=== PATIENT | male | born 1940 | race Caucasian/White ===

== ENCOUNTER 2018-09-29 12:53 | Inpatient (IN) | payer MEDICARE ==
[2018-09-29] MEDS ORDERED: FUROSEMIDE 100 MG SOL IV ONE (13:52)
[2018-09-29 14:06] LABS: HEMATOCRIT 40 % (39-53); HEMOGLOBIN 13.9 gm/dl (13.5-17.7); MEAN CORPUSCULAR HGB CONC 34.6 gm/dl (32.0-36.0); MEAN CORPUSCULAR VOLUME 93 fL (80-100)
[2018-09-29 14:11] LABS: ALBUMIN 1.9 gm/dl (3.4-5.0); BILIRUBIN,TOTAL 1.6 mg/dl (0.2-1.0); CALCIUM 7.5 mg/dl (8.5-10.1); CARBON DIOXIDE 22.8 mEq/L (21-32); CREATININE 0.94 mg/dl (0.80-1.30); TOTAL PROTEIN 6.8 gm/dl (6.4-8.2)
[2018-09-29 14:28] LABS: BAND NEUTROPHILS % (MANUAL) 1 %; BASOPHILS % (MANUAL) 0 % (0-3); EOSINOPHILS % (MANUAL) 1 % (0-9); NEUTROPHILS % (MANUAL) 56 % (37-80)
[2018-09-29 14:30] LABS: LYMPHOCYTES % (MANUAL) 35 % (10-50); MONOCYTES % (MANUAL) 7 % (0-12); NORMAL RBCS NORMAL; PLATELET MORPHOLOGY COMMENT DECREASED
[2018-09-29 14:57] LABS: INR 1.5 (0.86-1.12)
[2018-09-29] MEDS ORDERED: FUROSEMIDE 40 MG SOL ONE (15:15)
[2018-09-29 15:20] LABS: APPEARANCE,URINE Clear; BILIRUBIN,URINE NEGATIVE (NEGATIVE); COLOR,URINE Yellow; GLUCOSE, URINE (UA) NEGATIVE (NEGATIVE); KETONES,URINE NEGATIVE (NEGATIVE); LEUKOCYTE ESTERASE ,URINE NEGATIVE (NEGATIVE); NITRATE,URINE NEGATIVE (NEGATIVE); OCCULT BLOOD,URINE NEGATIVE (NEG-TRACE); UROBILINOGEN,URINE 0.2 (0.2-1.0 EU)
[2018-09-29 15:54] LABS: BACTERIA RARE (< 1+); CRYSTALS NEGATIVE (0-3 AVE/HPF); EPITHELIAL CELLS 0-1 (SQUAMOUS); RBC,URINE NEG (0-3AV/HPF); WBC,URINE NEG (0-5AV/HPF)
[2018-09-29] MEDS ORDERED: ALBUMIN HUMAN 100 ML IV ONE ×2 (17:13→17:54)
[2018-09-29] MEDS: SODIUM CHLORIDE 0.9% FLUSH 10 ML SOL IV SCH ×2 (17:22→21:36)
[2018-09-29] MEDS: ALBUMIN HUMAN 25 GM/100 ML SOL IV ONE ×3 (17:23→19:34)
[2018-09-29 18:24] LABS: PERITON FL APPEAR/VOLUME CLEAR YELLOW; PERITONEAL FLUID PMNS 1 %
[2018-09-29 18:25] LABS: PERITONEAL FLUID MONO'S 67 %
[2018-09-29 18:26] LABS: PERITONEAL FL GLUCOSE 116 mg/dl; PERITONEAL FLUID PH 8.5
[2018-09-29] MEDS: NOVOLOG FLEXPEN SC SCH ×2 (21:10→23:43)
[2018-09-29] MEDS: LISINOPRIL 5 MG TAB PO SCH (21:36)
[2018-09-29] MEDS: METOPROLOL TARTRATE 25 MG TAB PO SCH (21:36)
[2018-09-29] MEDS: ENOXAPARIN 40 MG SOL SC SCH (21:36)
[2018-09-30 07:18] LABS: ALBUMIN 2.2 gm/dl (3.4-5.0); BILIRUBIN,TOTAL 1.6 mg/dl (0.2-1.0); CALCIUM 7.4 mg/dl (8.5-10.1); CARBON DIOXIDE 23.6 mEq/L (21-32); CREATININE 0.86 mg/dl (0.80-1.30); TOTAL PROTEIN 5.8 gm/dl (6.4-8.2)
[2018-09-30 07:34] LABS: BASOPHILS % (AUTO) 1 % (0-3); EOSINOPHILS % (AUTO) 1 % (0-9); HEMATOCRIT 36 % (39-53); HEMOGLOBIN 12.3 gm/dl (13.5-17.7); LYMPHOCYTES % (AUTO) 29.2 % (10-50); MEAN CORPUSCULAR HEMOGLOBIN 31.9 pg (27.0-32.0); MEAN CORPUSCULAR HGB CONC 34.5 gm/dl (32.0-36.0); MEAN CORPUSCULAR VOLUME 93 fL (80-100); NEUTROPHILS % (AUTO) 63.2 % (37-80)
[2018-09-30 07:35] LABS: INR 1.74 (0.86-1.12)
[2018-09-30 07:43] LABS: PERTIONEAL FL RBC 2073 /mm3
[2018-09-30 07:46] LABS: PERITONEAL FL WBCS 128 /mm3
[2018-09-30] MEDS: NOVOLOG FLEXPEN SC SCH ×4 (08:22→20:52)
[2018-09-30] MEDS: ENOXAPARIN 40 MG SOL SC SCH (09:08)
[2018-09-30] MEDS: ATORVASTATIN 10 MG TAB PO SCH (09:15)
[2018-09-30] MEDS: ASPIRIN 81 MG CHEWABLE CTB PO SCH (09:15)
[2018-09-30] MEDS: SODIUM CHLORIDE 0.9% FLUSH 10 ML SOL IV SCH ×3 (09:15→21:38)
[2018-09-30] MEDS: TAMSULOSIN HYDROCHLORIDE 0.4 MG CAP PO SCH (09:15)
[2018-09-30] MEDS: METOPROLOL TARTRATE 25 MG TAB PO SCH ×2 (09:16→20:56)
[2018-09-30] MEDS: LISINOPRIL 5 MG TAB PO SCH (20:56)
[2018-10-01] MEDS: SODIUM CHLORIDE 0.9% FLUSH 10 ML SOL IV SCH ×3 (05:15→21:42)
[2018-10-01 08:31] LABS: BASOPHILS % (AUTO) 2 % (0-3); EOSINOPHILS % (AUTO) 2 % (0-9); HEMATOCRIT 38 % (39-53); HEMOGLOBIN 12.8 gm/dl (13.5-17.7); LYMPHOCYTES % (AUTO) 48.2 % (10-50); MEAN CORPUSCULAR HEMOGLOBIN 31.6 pg (27.0-32.0); MEAN CORPUSCULAR VOLUME 93 fL (80-100); MONOCYTES % (AUTO) 7.3 % (0-12); NEUTROPHILS % (AUTO) 41.4 % (37-80)
[2018-10-01 08:45] LABS: BILIRUBIN,TOTAL 1.7 mg/dl (0.2-1.0); CALCIUM 7.6 mg/dl (8.5-10.1); CREATININE 0.76 mg/dl (0.80-1.30); TOTAL PROTEIN 5.8 gm/dl (6.4-8.2)
[2018-10-01 08:52] LABS: CARBON DIOXIDE 26.3 mEq/L (21-32)
[2018-10-01] MEDS ORDERED: FUROSEMIDE 80 MG TAB PO SCH (09:00)
[2018-10-01] MEDS ORDERED: SPIRONOLACTONE 25 MG TAB PO SCH (09:00)
[2018-10-01] MEDS: FUROSEMIDE 40 MG SOL IV SCH ×2 (10:07→13:55)
[2018-10-01] MEDS: SODIUM CHLORIDE 0.9% FLUSH 10 ML SOL IV PRN (10:08)
[2018-10-01] MEDS: NOVOLOG FLEXPEN SC SCH ×4 (10:14→20:46)
[2018-10-01] MEDS: ENOXAPARIN 40 MG SOL SC SCH (10:14)
[2018-10-01] MEDS: ATORVASTATIN 10 MG TAB PO SCH (10:16)
[2018-10-01] MEDS: TAMSULOSIN HYDROCHLORIDE 0.4 MG CAP PO SCH (10:17)
[2018-10-01] MEDS: ASPIRIN 81 MG CHEWABLE CTB PO SCH (10:18)
[2018-10-01] MEDS: METOPROLOL TARTRATE 25 MG TAB PO SCH ×2 (10:18→20:50)
[2018-10-01] MEDS ORDERED: APAP/HYDROCODONE 1 EACH TABLET PO PRN (20:45)
[2018-10-01] MEDS ORDERED: ACETAMINOPHEN 500 MG 500 MG TAB PO PRN (20:45)
[2018-10-01] MEDS ORDERED: FUROSEMIDE 40 MG SOL IV ONE (20:46)
[2018-10-01] MEDS ORDERED: METOLAZONE 2.5 MG TABLET PO ONE ×2 (20:46→21:45)
[2018-10-01] MEDS ORDERED: POTASSIUM CHLORIDE 10 MEQ TER PO ONE (20:47)
[2018-10-01] MEDS: LISINOPRIL 5 MG TAB PO SCH (20:51)
[2018-10-01] MEDS: IBUPROFEN 400 MG TAB PO PRN (21:40)
[2018-10-02] MEDS: SODIUM CHLORIDE 0.9% FLUSH 10 ML SOL IV SCH ×4 (05:09→21:37)
[2018-10-02 07:36] LABS: BASOPHILS % (AUTO) 2 % (0-3); EOSINOPHILS % (AUTO) 3 % (0-9); HEMATOCRIT 37 % (39-53); HEMOGLOBIN 12.5 gm/dl (13.5-17.7); LYMPHOCYTES % (AUTO) 44.6 % (10-50); MEAN CORPUSCULAR HEMOGLOBIN 31.7 pg (27.0-32.0); MEAN CORPUSCULAR HGB CONC 33.9 gm/dl (32.0-36.0); MEAN CORPUSCULAR VOLUME 94 fL (80-100); MONOCYTES % (AUTO) 9.3 % (0-12); NEUTROPHILS % (AUTO) 41.1 % (37-80)
[2018-10-02 08:00] LABS: ALBUMIN 1.9 gm/dl (3.4-5.0); BILIRUBIN,TOTAL 1.2 mg/dl (0.2-1.0); CALCIUM 7.4 mg/dl (8.5-10.1); CARBON DIOXIDE 24.7 mEq/L (21-32); CREATININE 0.78 mg/dl (0.80-1.30); TOTAL PROTEIN 5.5 gm/dl (6.4-8.2)
[2018-10-02] MEDS: NOVOLOG FLEXPEN SC SCH ×4 (08:27→20:57)
[2018-10-02] MEDS: ASPIRIN 81 MG CHEWABLE CTB PO SCH (09:32)
[2018-10-02] MEDS: TAMSULOSIN HYDROCHLORIDE 0.4 MG CAP PO SCH (09:32)
[2018-10-02] MEDS: METOPROLOL TARTRATE 25 MG TAB PO SCH ×2 (09:32→20:56)
[2018-10-02] MEDS: ENOXAPARIN 40 MG SOL SC SCH (09:37)
[2018-10-02] MEDS: SPIRONOLACTONE 25 MG TAB PO SCH (10:37)
[2018-10-02] MEDS: METOLAZONE 2.5 MG TABLET PO SCH ×2 (10:38→13:24)
[2018-10-02] MEDS: FUROSEMIDE 100 MG SOL IV SCH (10:44)
[2018-10-02] MEDS ORDERED: FUROSEMIDE 40 MG SOL IV SCH (12:00)
[2018-10-02] MEDS ORDERED: TEMAZEPAM 15MG 15 MG CAP PO PRN (19:23)
[2018-10-02] MEDS: LISINOPRIL 5 MG TAB PO SCH (21:00)
[2018-10-03] MEDS: NOVOLOG FLEXPEN SC SCH ×4 (08:12→21:11)
[2018-10-03] MEDS: SODIUM CHLORIDE 0.9% FLUSH 10 ML SOL IV SCH ×4 (08:14→21:24)
[2018-10-03 08:52] LABS: BASOPHILS % (AUTO) 2 % (0-3); EOSINOPHILS % (AUTO) 2 % (0-9); HEMATOCRIT 39 % (39-53); HEMOGLOBIN 13.7 gm/dl (13.5-17.7); LYMPHOCYTES % (AUTO) 50.3 % (10-50); MEAN CORPUSCULAR HEMOGLOBIN 32.7 pg (27.0-32.0); MEAN CORPUSCULAR HGB CONC 35.3 gm/dl (32.0-36.0); MEAN CORPUSCULAR VOLUME 93 fL (80-100); MONOCYTES % (AUTO) 7.9 % (0-12); NEUTROPHILS % (AUTO) 37.7 % (37-80)
[2018-10-03 09:06] LABS: ALBUMIN 2.1 gm/dl (3.4-5.0); BILIRUBIN,TOTAL 1.1 mg/dl (0.2-1.0); CALCIUM 7.6 mg/dl (8.5-10.1); CREATININE 0.89 mg/dl (0.80-1.30); TOTAL PROTEIN 6.2 gm/dl (6.4-8.2)
[2018-10-03] MEDS: SPIRONOLACTONE 25 MG TAB PO SCH (09:29)
[2018-10-03] MEDS: ASPIRIN 81 MG CHEWABLE CTB PO SCH (09:29)
[2018-10-03] MEDS: TAMSULOSIN HYDROCHLORIDE 0.4 MG CAP PO SCH (09:29)
[2018-10-03] MEDS: METOPROLOL TARTRATE 25 MG TAB PO SCH ×2 (09:30→21:09)
[2018-10-03] MEDS: METOLAZONE 2.5 MG TABLET PO SCH ×2 (09:30→11:49)
[2018-10-03] MEDS: FUROSEMIDE 100 MG SOL IV SCH (09:36)
[2018-10-03] MEDS: ENOXAPARIN 40 MG SOL SC SCH (10:02)
[2018-10-03] MEDS: SODIUM CHLORIDE 0.9% FLUSH 10 ML SOL IV PRN (11:48)
[2018-10-03] MEDS: FUROSEMIDE 40 MG SOL IV SCH (11:48)
[2018-10-03] MEDS ORDERED: FUROSEMIDE 40 MG SOL IV ONE (16:30)
[2018-10-03] MEDS: IBUPROFEN 400 MG TAB PO PRN (19:22)
[2018-10-03] MEDS: LISINOPRIL 5 MG TAB PO SCH (21:09)
[2018-10-04] MEDS: SODIUM CHLORIDE 0.9% FLUSH 10 ML SOL IV SCH ×2 (06:13→14:25)
[2018-10-04 07:25] LABS: ALBUMIN 1.9 gm/dl (3.4-5.0); BASOPHILS % (AUTO) 1 % (0-3); CALCIUM 7.7 mg/dl (8.5-10.1); CARBON DIOXIDE 28.4 mEq/L (21-32); CREATININE 1.01 mg/dl (0.80-1.30); EOSINOPHILS % (AUTO) 3 % (0-9); HEMATOCRIT 37 % (39-53); HEMOGLOBIN 12.7 gm/dl (13.5-17.7); LYMPHOCYTES % (AUTO) 47.5 % (10-50); MEAN CORPUSCULAR HEMOGLOBIN 31.9 pg (27.0-32.0); MEAN CORPUSCULAR HGB CONC 34.5 gm/dl (32.0-36.0); MEAN CORPUSCULAR VOLUME 93 fL (80-100); MONOCYTES % (AUTO) 10.1 % (0-12); TOTAL PROTEIN 5.7 gm/dl (6.4-8.2)
[2018-10-04 09:14] VITALS: RESP 18; TEMP 97.3
[2018-10-04] MEDS: NOVOLOG FLEXPEN SC SCH ×2 (09:20→12:05)
[2018-10-04] MEDS: FUROSEMIDE 100 MG SOL IV SCH (09:39)
[2018-10-04] MEDS: SODIUM CHLORIDE 0.9% FLUSH 10 ML SOL IV PRN (09:40)
[2018-10-04] MEDS: SPIRONOLACTONE 25 MG TAB PO SCH (09:43)
[2018-10-04] MEDS: TAMSULOSIN HYDROCHLORIDE 0.4 MG CAP PO SCH (09:44)
[2018-10-04] MEDS: ASPIRIN 81 MG CHEWABLE CTB PO SCH (09:44)
[2018-10-04] MEDS: METOLAZONE 2.5 MG TABLET PO SCH ×2 (09:44→12:13)
[2018-10-04] MEDS: ENOXAPARIN 40 MG SOL SC SCH (09:47)
[2018-10-04] MEDS ORDERED: PNEUMOC 13-VAL CONJ-DIP CRM/PF 0.5 ML SYRINGE IM ONE (10:15)
[2018-10-04 10:53] VITALS: BP 101/53
[2018-10-04] MEDS: METOPROLOL TARTRATE 25 MG TAB PO SCH (11:05)
[2018-10-04] MEDS: FUROSEMIDE 40 MG SOL IV SCH (11:55)
[2018-10-04 13:58] VITALS: PULSE 74; O2SAT 93
== END 2018-10-04 14:40 | disposition home or self-care (01) | DRG 292 ==
LOC: ED 12:53 → UNDOADMIN 17:31 → ACUTE CARE 17:31
PROVIDERS: ADMIT Internal Medicine; ATTEND Internal Medicine
PROC: F01ZCFZ Transfer Assessment using Assistive, Adaptive, Supportive or Protective Equipment (ICD-10-PCS; principal; 2018-09-30)
PROC: F02Z0ZZ Bathing/Showering Assessment (ICD-10-PCS; 2018-09-30)
PROC: F02Z3ZZ Grooming/Personal Hygiene Assessment (ICD-10-PCS; 2018-09-30)
DX: I50.9 Heart failure, unspecified (principal); R18.8 Other ascites; E87.1 Hypo-osmolality and hyponatremia; C91.10 Chronic lymphocytic leukemia of B-cell type not having achieved remission; R94.5 Abnormal results of liver function studies; R60.1 Generalized edema; E87.70 Fluid overload, unspecified; R60.9 Edema, unspecified; R33.9 Retention of urine, unspecified; H53.8 Other visual disturbances; R06.02 Shortness of breath; R06.00 Dyspnea, unspecified; E11.9 Type 2 diabetes mellitus without complications; Z79.4 Long term (current) use of insulin; R33.8 Other retention of urine; K74.60 Unspecified cirrhosis of liver; D72.9 Disorder of white blood cells, unspecified
CPT/HCPCS: 36415; 49083; 71046; 80053; 81001; 82945; 82962; 83036; 83735; 83880; 84157; 85007; 85025; 85027; 85610; 85730; 87070; 87075; 87088; 87205; 89050; 89051; 90670; 93005; 93012; 93306; 94664; 94760; 96374; 99070; 99211; 99223; 99285; J1650; J1940; P9047; 84153-90; A9270-GY; G0008; J1815

== ENCOUNTER 2018-11-12 19:18 | Emergency (ER) | payer MEDICARE ==
[2018-11-12 19:42] VITALS: TEMP 97.5
[2018-11-12 20:22] LABS: APPEARANCE,URINE Cloudy; BILIRUBIN,URINE NEGATIVE (NEGATIVE); COLOR,URINE Yellow; GLUCOSE, URINE (UA) NEGATIVE (NEGATIVE); KETONES,URINE NEGATIVE (NEGATIVE); LEUKOCYTE ESTERASE ,URINE 2+ (NEGATIVE); NITRATE,URINE NEGATIVE (NEGATIVE); OCCULT BLOOD,URINE TRACE LYSED (NEG-TRACE); PH,URINE 5.5; UROBILINOGEN,URINE 0.2 (0.2-1.0 EU)
[2018-11-12 20:39] LABS: HEMATOCRIT 39 % (39-53); HEMOGLOBIN 13.1 gm/dl (13.5-17.7); MEAN CORPUSCULAR HEMOGLOBIN 32.7 pg (27.0-32.0); MEAN CORPUSCULAR HGB CONC 33.4 gm/dl (32.0-36.0); MEAN CORPUSCULAR VOLUME 98 fL (80-100)
[2018-11-12 20:45] LABS: ALBUMIN 2.2 gm/dl (3.4-5.0); BILIRUBIN,TOTAL 1.1 mg/dl (0.2-1.0); CALCIUM 7.8 mg/dl (8.5-10.1); CARBON DIOXIDE 25.3 mEq/L (21-32); CREATININE 0.89 mg/dl (0.80-1.30); TOTAL PROTEIN 7.5 gm/dl (6.4-8.2)
[2018-11-12 20:48] LABS: INR 1.36 (0.87-1.13)
[2018-11-12 20:52] LABS: BAND NEUTROPHILS % (MANUAL) 1 %; BASOPHILS % (MANUAL) 0 % (0-3); EOSINOPHILS % (MANUAL) 0 % (0-9); MONOCYTES % (MANUAL) 7 % (0-12); NEUTROPHILS % (MANUAL) 59 % (37-80); PLATELET MORPHOLOGY COMMENT SL DECREASE; SMUDGE CELLS MANY NOTED
[2018-11-12 20:53] LABS: ANISOCYTOSIS SLIGHT AMT; LYMPHOCYTES % (MANUAL) 33 % (10-50)
[2018-11-12 21:01] LABS: RBC,URINE NEG (0-3AV/HPF); WBC,URINE 60-80 (0-5AV/HPF)
[2018-11-12 21:02] LABS: BACTERIA 4+ (< 1+); CRYSTALS NEGATIVE (0-3 AVE/HPF); EPITHELIAL CELLS 0-1 (SQUAMOUS)
[2018-11-12] MEDS ORDERED: CEPHALEXIN 250 MG/5 ML BOTTLE PO ONE (21:20)
[2018-11-13 05:42] VITALS: RESP 16
[2018-11-13 05:43] VITALS: BP 145/84; PULSE 84; O2SAT 96
== END 2018-11-12 21:15 | disposition home or self-care (01) | DRG 690 ==
LOC: ED 19:18
DX: N39.0 Urinary tract infection, site not specified (principal); R18.8 Other ascites; R60.9 Edema, unspecified; K74.60 Unspecified cirrhosis of liver; M62.81 Muscle weakness (generalized); R42 Dizziness and giddiness; E11.9 Type 2 diabetes mellitus without complications
CPT/HCPCS: 36415; 71046; 80053; 81001; 85007; 85027; 85610; 85730; 87077; 87088; 87186; 99282; 99284

== ENCOUNTER 2018-12-07 10:39 | Emergency (ER) | payer MEDICARE | END 2018-12-07 16:08 | disposition home or self-care (01) | LOC: ED 10:39 ==

== ENCOUNTER 2018-12-09 12:06 | Emergency (ER) | payer MEDICARE | END 2018-12-09 17:56 | LOC: ED 12:06 ==